=== PATIENT | female | born 1990 | race Caucasian/White ===

== ENCOUNTER 2018-05-25 10:55 | Day surgery (SDC) | payer BC ==
[~2018-05-25] VITALS: Ht 165.1 cm; Wt 116.6 kg
[2018-05-25] VITALS (14 sets, daily range): BP systolic 110–146; BP diastolic 64–85; PULSE 84–100; RESP 15–23; Ht 165.1 cm; Wt 116.6 kg
[~2018-05-25 10:55] MED LIST: CEFAZOLIN 1 GM INJ ONE
[2018-05-25] MEDS ORDERED: METF500T24 PO (11:15)
[2018-05-25] MEDS ORDERED: NORE1TAB30 PO (11:16)
--- NOTE | 2018-05-25 14:47 | PREAC ---
Date/Time of Note Date/Time of Note DATE: 05/25/18 TIME: 14:46 Anesthesia Eval and Record Evaluation Time Pre-Procedure Interview DATE: 05/25/18 TIME: 14:46 Age 28 Sex female NPO: 8 hrs Preoperative diagnosis chronic tonsillitis and tonsillar hypertrophy Planned procedure bilateral tonsillectomy Past Medical History Past Medical History: Includes Endo: Diabetes (blood sugar 88) GI: Morbid obesity Surgery & Anesthesia Issues No known issue Meds Anticoagulation: No Beta Cristian within 24 hr: No Reason Beta Cristian not given: Pt. not on B-Cristian Reported Medications Norethindrone-Ethinyl Estrad (Balziva 28 Tablet) 1 Each Tablet, 1 EACH PO DAILY, TAB 05/25/18 Metformin Hcl* (Metformin Hcl*) 500 Mg Tablet, 500 MG PO WITH BREAKFAST, #30 TAB 05/25/18 Meds reviewed: Yes Allergies Coded Allergies: No Known Allergy (Unverified , 05/25/18) Allergies Reviewed: Yes Labs/Studies Labs Reviewed: Reviewed by anesthesiologist test: Negative Pre-procedure Exam Last vitals Vital Signs Date Temp Pulse Resp B/P (MAP) Pulse Ox O2 O2 Flow FiO2 Time Delivery Rate 05/25/18 98.2 84 16 132/65 99 Room Air 13:04 (87) Airway: Adequate mouth opening, Adequate thyromental dist Mallampati: Mallampati II Teeth: Normal Lung: Normal Heart: Normal ASA Physical Status ASA physical status: 3 Emergency: None Planned Anesthetic General/MAC: ETT Planned Pain Management Parenteral pain med Pre-operative Attestations Prior to commencing anesthesia and surgery, the patient was re-evaluated, there was verification of: *The patient's identity *The results of appropriate recent lab work and preoperative vital signs *The above evaluation not changing prior to induction *Anesthetic plan, risk benefits, alternative and complications discussed with patient/family; questions answered; patient/family understands, accepts and wishes to proceed. DENISHA STEPHENSON MD May 25, 2018 14:47
--- NOTE | 2018-05-25 14:52 | HPN ---
Date/Time of Note Date/Time of Note DATE: 05/25/18 TIME: 14:52 Interval H&P Admission Note Pt. seen H&P reviewed: No system changes ALBERT MANDEL M.D. May 25, 2018 14:52
[2018-05-25] MEDS ORDERED: HYDROmorphONE 1 MG/5 ML IV SYRINGE IV PRN (15:00)
[2018-05-25] MEDS ORDERED: DIPHENHYDRAMINE 50 MG INJ IV PRN (15:00)
[2018-05-25] MEDS ORDERED: ONDANSETRON 4 MG INJ IV PRN (15:00)
[2018-05-25] MEDS ORDERED: MEPERIDINE 25 MG INJ IV PRN (15:00)
[2018-05-25] MEDS ORDERED: OXYCODONE/ACETAMINOPHEN (5/325) TAB PO PRN (15:00)
[2018-05-25] MEDS ORDERED: FENTAnyl 50 MCG/ML VIAL IV PRN (15:00)
[2018-05-25] MEDS ORDERED: BUPIVACAINE 0.5%/EPI (SDV) 30 ML INJ ONE (15:13)
[2018-05-25] MEDS ORDERED: TRIAMCINOLONE ACET 40 MG/ML INJ ONE (15:13)
[2018-05-25] MEDS ORDERED: MIDAZOLAM 1 MG/ML 2 ML INJ ONE (15:30)
[2018-05-25] MEDS ORDERED: FENTAnyl 50 MCG/ML VIAL ONE (15:30)
[2018-05-25] MEDS ORDERED: PROPOFOL 20 ML ONE ×2 (15:30→15:39)
[2018-05-25] MEDS ORDERED: LIDOCAINE 2% (SDV) 5 ML INJ ONE (15:30)
[2018-05-25] MEDS ORDERED: SUCCINYLCHOLINE CHLORIDE 100 MG/5 ML SYG IV ONE (15:48)
[2018-05-25] MEDS ORDERED: ROCURONIUM 50 MG INJ ONE ×2 (15:48)
[2018-05-25] MEDS ORDERED: FAMOTIDINE 20 MG INJ ONE (15:50)
[2018-05-25] MEDS ORDERED: ONDANSETRON 4 MG INJ ONE (15:50)
[2018-05-25] MEDS ORDERED: INSULIN ASPART [NOVOLOG] 3 ML PEN SC ONE (16:00)
[2018-05-25] MEDS ORDERED: LABETALOL HCL 20MG INJ ONE (16:09)
[2018-05-25] MEDS ORDERED: SUGAMMADEX SODIUM 200 MG/2 ML VIAL IV ONE (16:24)
[2018-05-25] MEDS ORDERED: GLUCOSE GEL 15 GRAM TUBE BUCCAL PRN (16:30)
[2018-05-25] MEDS ORDERED: GLUCAGON 1 MG INJ IM PRN (16:30)
[2018-05-25] MEDS ORDERED: DEXTROSE 50% 50 ML SYRINGE IV PRN ×2 (16:30)
[2018-05-25] MEDS ORDERED: GLUCOSE GEL 15 GRAM TUBE PO PRN ×2 (16:30)
--- NOTE | 2018-05-25 16:33 | OPR ---
Date/Time of Note Date/Time of Note DATE: 05/25/18 TIME: 16:29 Operative Report Procedure Date: May 25, 2018 Preoperative Diagnosis 1. CHRONIC TONSILLITIS. 2. BILATERAL TONSILLAR TISSUE HYPERTROPHY. 3. HX/O REPEAT ACUTE TONSILLITIS Postoperative Diagnosis SAME. Operation/Procedure Performed 1. BILATERAL TONSILLECTOMY. Surgeon see signature line Steamfitter Supervisor NONE. Anesthesia Type: general (WITH OT TUBE INTUBATION. 20 CC 1/2% MARCAINE WITH EPI 1:200,000 SOLN) Estimated Blood Loss: 10 - 50 ml's Transfusion none Specimen LEFT AND RIGHT ]TONSILLAR TISSUE. Grafts/Implants none Tubes/Drains NONE. Complications none Pt Condition Post Procedure: stable Disposition: PACU Indications TO PREVENT INFECTIONS. Procedure Description SEE DICTATED OPERATIVE REPORT. ALBERT MANDEL M.D. May 25, 2018 16:32
--- NOTE | 2018-05-25 16:34 | PDOCDIS ---
Discharge Instructions DIAGNOSIS Discharge Diagnosis 1. CHRONIC TONSILLITIS. 2. BILATERAL TONSILLAR TISSUE HYPERTROPHY. 3. HX/O REPEAT ACUTE TONSILLITIS CONDITION [id number] Patient Condition: [id number] Good HOME CARE INSTRUCTIONS: [id number] Diet Instructions: Kiucf7i Regular (NO HOT OR SPICY FOPODS. ENCOURAGE LOTS OF FLUIDS AND FEEDINGS. ) ACTIVITY: [id number] Activity Restrictions: Xcync4a Slowly Increase Activity Rest between Activity Avoid heavy lifting Avoid Heavy Housework [id number] Bathing Restrictions: Wcrdw9a Tub Bath FOLLOW UP/APPOINTMENTS Follow-up Plan MY OFFICE IN 10 TO 14 DAYS. SCHOOL/WORK RELEASE May return to School/Work on: Jun 09, 2018 May return to School/Work with: No Restrictions ALBERT MANDEL M.D. May 25, 2018 16:34
--- NOTE | 2018-05-25 16:43 | PAC ---
Date/Time of Note Date/Time of Note DATE: 05/25/18 TIME: 16:41 Post-Anesthesia Notes Post-Anesthesia Note Last documented vital signs Vital Signs Date Temp Pulse Resp B/P (MAP) Pulse Ox O2 O2 Flow FiO2 Time Delivery Rate 05/25/18 98.2 84 16 132/65 99 Room Air 13:04 (87) Activity: WNL Respiratory function: WNL Cardiovascular function: WNL Mental status: Baseline Pain reasonably controlled: Yes Hydration appropriate: Yes Nausea/Vomiting absent: Yes Comments BP: 136/82 HR: 94 RR: 16 T: 97.9 SaO2: 95% room air DENISHA STEPHENSON MD May 25, 2018 16:43
--- NOTE | 2018-05-25 19:15 | OPR ---
DATE OF OPERATION: 05/25/2018 SURGEON: Sam London MD PREOPERATIVE DIAGNOSES: 1. Chronic tonsillitis. 2. Bilateral tonsil tissue hypertrophy. 3. History of acute recurrent tonsillitis episodes. POSTOPERATIVE DIAGNOSES: 1. Chronic tonsillitis. 2. Bilateral tonsil tissue hypertrophy. 3. History of acute recurrent tonsillitis episodes. SURGICAL PROCEDURE PERFORMED: Bilateral tonsillectomy. ESTIMATED BLOOD LOSS: Less than 30 mL. COMPLICATIONS: None. SPECIMENS SENT TO LABORATORY: Left and right tonsils for gross microscopic evaluation. ANESTHETIC USED: General anesthesia with orotracheal tube intubation. The patient also received 20 mL of Marcaine 0.5% with epinephrine 1:200,000 solution using a 23-gauge spinal needle. The patient also had 1 mL of Kenalog 40 mg injected into soft palate using the same 23-gauge spinal needle. The patient was also given Ancef before the case was begun. FINDINGS DURING PROCEDURE: Enlarged tonsils bilaterally pedunculated in nature. No signs of acute i nflammation. There is no bifid uvula, tumors, malignancies or submucous cleft present. INDICATIONS: The patient is a 28-year-old female with a history of repeat acute tonsillitis more jeff n 7 episodes in 1 year period. The patient has currently been scheduled for today's procedure which includes bilateral tonsillectomy procedure as indicated. Risks, benefits and alternatives have been explained thoroughly to the patient. They include infection, bleeding, scar formation, possible cuate ge to lingual nerve which could result in tongue numbness. She also understands the risks of possibl e damage to the gingiva or dental structures as a result of this procedure. She also understands the possible risks of reactions to general local anesthetic agents that will be used during the procedur e. She has signed a consent once her questions were answered. DISPOSITION: The patient left the operating room in good and satisfactory condition to the recovery room and extubated. DESCRIPTION OF PROCEDURE: The patient was taken to the operating room, placed on the surgical table in supine position, made comfortable by the anesthesiologist, Dr. Barlow. The patient had EKG, satura tion monitoring and blood pressure cuff applied. At this point, the patient was started on IV in the preinduction area which was infusing well. The patient was given IV sedation and placed under gener al anesthesia. The airway was maintained and controlled before being successfully orotracheally intu bated with orotracheal cuffed tube without any complications. Tube was taped to the lower lip in the midline and the eyes were taped for protection. At this point, the vital signs were noted to be sta ble as the patient was then rendered under general anesthesia. Brief time-out with patient identific ation and procedures entertained and all were in agreement. At this point, the table was then unlock ed and rotated 90 degrees to the left before being relocked. Head of the table was extended to give better access to the oral cavity. McIvor mouth gag with a 5-left blade was then gently inserted into the oral cavity with care not to damage dental or gingival structures. McIvor mouth gag was then op ened and suspended from overlying Ramachandran stand. The head was supported. The patient was then draped o ff in sterile fashion using split sheet as the oral cavity was inspected. The patient did not have a bifid uvula visually and there was no palpated submucous cleft. At this point, 2 red Baca vladimir ters were passed in nasal cavity to help retract the soft palate. At this point, the tonsils were no farzad to be pedunculated with multiple crypts and pits with tonsil stones. The tonsil was then injecte d in the lateral position using a 23-gauge spinal needle using 0.5% Marcaine with epinephrine 1:200,0 00 solution. At this point, the palate was also injected just above the uvula using the same 23-gaug e needle with 40 mg of Kenalog using 1 mL. At this point, the left and right tonsils were then remov ed down normal anatomical planes using Loyda dissector. This was done using blunt and sharp dissectio n as the left and right tonsils were then removed and sent to the lab for gross microscopic evaluatio n. Tonsillar sponge pack was placed inside the tonsillar fossa to tamponade bleeding points. At thi s point, electrocautery suction Bovie was used to cauterize bleeding points in the tonsillar fossa bi laterally to promote hemostasis. At this point, copious amounts of normal saline solution with bacit racin added was then used to irrigate the nasal cavity and nasopharynx in preparation for extubation. A suction catheter was placed of the stomach and esophagus to remove ingested tissue products and s ecretions also in preparation for extubation. At this point, the 2 red Baca catheters were then removed and small bleeding point superior pole of the tonsillar fossa were cauterized with electrocau radha suction Bovie. At this point, no further bleeding was noted in the procedure. At this point, t he red Baca catheters were removed as well as the McIvor mouth gag and the 5-left blade. At this point, the patient was reversed from her general anesthetic agents, extubated in the operating room, taken to recovery room where she is currently doing well, expect to be discharged home unless postop erative complications develop. Dictated By: SAM DIEZ/ULISES Conf#: [id number] DID#: [id number]
== END 2018-05-25 18:20 | disposition home or self-care (01) ==
LOC: SDS 10:55
PROVIDERS: ATTEND Otolaryngology Otolaryngology/Facial Plastic Surgery
DX: J35.01 Chronic tonsillitis (principal); J03.80 Acute tonsillitis due to other specified organisms; E11.9 Type 2 diabetes mellitus without complications
CPT/HCPCS: 42826; 82962; 88304; J1815; J2250; J2405; J3010; Z7512; Z7610; J0690

== ENCOUNTER → 2018-06-03 | Emergency (ER) | payer BC ==
[~2018-06-03] VITALS: Ht 162.6 cm; Wt 115.2 kg
[~2018-06-03] MED LIST changes: -CEFAZOLIN 1 GM INJ ONE; +HYDROCODONE/APAP (10/325) TAB PO ONE; +METF500T24 PO; +NORE1TAB30 PO; +ONDANSETRON (ODT) 4 MG TAB ODT STA; +ONDANSETRON 4 MG INJ IV STA; +morphine 2 MG INJ IV STA
[2018-06-03 21:36] VITALS: Ht 162.6 cm; Wt 115.2 kg
--- NOTE | 2018-06-04 03:00 | ERD ---
ER Documentation Chief Complaint Chief Complaint ST HPI The patient is a 28-year-old female, presenting to the ER because of sore throat for the last couple days, had tonsillectomy [address] London and has an appointment to see him tomorrow. She is currently taking Keflex and Tylenol with codeine. He denies fever, neck pain, chest pain, dyspnea, abdominal pain, vomiting, dysuria, diarrhea. She does not smoke nor drink Past medical history: Diabetes mellitus Past surgical history: Tonsillectomy, appendectomy ROS All systems reviewed and are negative except as per history of present illness. Medications Home Meds Reported Medications Norethindrone-Ethinyl Estrad (Balziva 28 Tablet) 1 Each Tablet, 1 EACH PO DAILY, TAB 05/25/18 Metformin Hcl* (Metformin Hcl*) 500 Mg Tablet, 500 MG PO WITH BREAKFAST, #30 TAB 05/25/18 Allergies Allergies: Coded Allergies: No Known Allergy (Unverified , 05/25/18) PMhx/Soc History of Surgery: Yes (appendectomy) Anesthesia Reaction: No Hx Neurological Disorder: No Hx Respiratory Disorders: Yes (HX OF PNA) Hx Cardiac Disorders: No Hx Psychiatric Problems: No Hx Miscellaneous Medical Probl: No Hx Alcohol Use: No Hx Substance Use: No Hx Tobacco Use: No Physical Exam Vitals Vital Signs Date Temp Pulse Resp B/P (MAP) Pulse Ox O2 O2 Flow FiO2 Time Delivery Rate 06/04/18 98.5 80 20 127/88 98 Room Air 03:46 (101) 06/03/18 98.5 138 20 132/81 99 21:36 (98) Physical Exam Const: No acute distress. Head: Atraumatic. Eyes: Normal Conjunctiva. ENT: Normal External Ears, Nose and Mouth. No oropharyngeal bleeding Neck: Full range of motion. No meningismus. Resp: Clear to auscultation bilaterally. Cardio: Regular rate and rhythm. Abd: Soft, non distended, normal bowel sounds, non tender. Skin: No petechiae or rashes. Back: No midline or flank tenderness. Ext: No cyanosis, or edema. Neur: Awake and alert. No focal deficit Psych: Normal Mood and Affect. Results 24 hrs Laboratory Tests Test 06/04/18 03:45 Bedside Glucose 103 mg/dL Current Medications Medications Dose Sig/Irasema Start Time Status Last (Trade) Ordered Route PRN Stop Time Admin Dose Reason Admin 1 tab ONCE ONCE 06/04/18 DC Acetaminophen PO 04:30 / 06/04/18 04:31 Hydrocodone Bitart ([place] ()) Ondansetron 4 mg ONCE STAT 06/04/18 DC HCl (Zofran ODT 04:07 Odt) 06/04/18 04:08 Morphine 2 mg ONCE STAT 06/04/18 DC 06/04/18 Sulfate IV 04:29 04:42 (morphine) 06/04/18 04:31 Ondansetron 4 mg ONCE STAT 06/04/18 DC 06/04/18 HCl (Zofran IV 04:29 04:42 Inj) 06/04/18 04:31 Procedures/MDM MEDICAL MAKING DECISION: The patient is a 28-year-old female, presenting with acute postoperative pain, was treated with morphine 2 mg IV for pain, Zofran 4 mg IV for nausea with good response, is stable for outpatient follow-up The differential diagnoses considered include but are not limited to pharyngeal cellulitis/abscess, postop pain/infection Departure Diagnosis: Primary Impression: Postoperative pain Condition: Good Comments I discussed the findings with the patient. I advised the patient to follow-up with Dr London tomorrow as scheduled Disclaimer: Inadvertent spelling and grammatical errors are likely due to EHR/ dictation software use and do not reflect on the overall quality of patient care. Also, please note that the electronic time recorded on this note does not necessarily reflect the actual time of the patient encounter. YUE PEÑA MD Jun 04, 2018 03:00
[2018-06-04 05:22] VITALS: BP 114/83; PULSE 89; RESP 20
== END | disposition home or self-care (01) ==
LOC: E/R 21:31
DX: G89.18 Other acute postprocedural pain (principal); E11.9 Type 2 diabetes mellitus without complications; Z79.84 Long term (current) use of oral hypoglycemic drugs
CPT/HCPCS: 82962; 96374; 96375; J2270; J2405